=== PATIENT | female | born 1990 | race Caucasian/White ===

== ENCOUNTER 2024-04-21 21:45 | Emergency (ER) | payer OTHER ==
[~2024-04-21] VITALS: Ht 142.2 cm; Wt 51.3 kg
[2024-04-21 22:12] LABS: BASOPHILS 0.1 % (0-2); HEMATOCRIT 43.9 % (35.0-50.0); HEMOGLOBIN 15.2 g/dL (12.0-18.0); MCH 29.3 (27-36); MCHC 34.6 g/dl (30-36); MCV 84.7 fl (81-99); MONOCYTES 2.2 % (0-12); NEUTROPHILS 91.7 % (39-80); PLATELET COUNT 246 K/uL (140-440); RBC 5.18 M/ul (4.3-5.7); RDW 14.7 (10.5-15.0)
[2024-04-21] MEDS ORDERED: ondansetron HCL 4 MG/2 ML VIAL IV ONE (22:15)
[2024-04-21] MEDS ORDERED: SODIUM CHLORIDE 0.9% 1,000 ML IV ONE (22:15)
[2024-04-21 22:28] LABS: ALBUMIN 4.5 g/dL (3.4-5.0); ALBUMIN/GLOBULIN RATIO 1.22 (1.1-2.4); ANION GAP 17.2 (7-21); BILIRUBIN, TOTAL 0.9 mg/dL (0.2-1.0); BUN/CREATININE RATIO 27.5 (6.0-28.6); CALCIUM 9.2 mg/dL (8.5-10.1); CREATININE, SERUM 0.8 mg/dL (0.55-1.02); MAGNESIUM 1.8 mg/dL (1.8-2.4); POTASSIUM 4.2 mmol/L (3.5-5.1); PROTEIN, TOTAL 8.2 g/dL (6.4-8.2)
[2024-04-21 22:46] LABS: BILIRUBIN, URINE POSITIVE (negative); BLOOD/HGB, URINE NEGATIVE (Negative); KETONE, URINE SMALL (Negative); LEUK ESTERASE, URINE NEGATIVE (negative); NITRITE, URINE NEGATIVE (negative); PH, URINE 5.5 (5-7)
[2024-04-21] MEDS ORDERED: DIPHENOXYLATE/ATROPINE 1 EA TAB PO ONE (23:00)
[2024-04-21] MEDS ORDERED: ONDANSETRON 4 MG HOME.PACK SL ONE (23:45)
[2024-04-21 23:51] VITALS: BP 118/73
== END 2024-04-21 23:50 | disposition home or self-care (01) ==
LOC: ED 21:45
PROVIDERS: Emergency Medicine
DX: K52.9 Noninfective gastroenteritis and colitis, unspecified (principal); K21.9 Gastro-esophageal reflux disease without esophagitis; Z88.1 Allergy status to other antibiotic agents
CPT/HCPCS: 36415; 80053; 81003; 83735; 84703; 85025; 96374; 99284-25; A9270; J2405; J7030

== ENCOUNTER 2024-08-23 14:36 | Emergency (ER) | payer OTHER ==
[~2024-08-23] VITALS: Ht 142.2 cm; Wt 48.0 kg
--- OUTSIDE RECORDS SUMMARY | 2024-08-23 14:44 | XMS ---
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 Dentist: [employer] [facility] PHONE: [phone] -Johann- Dentist: [employer] [facility] PHONE: [phone] Jude has no Care Guidelines for this patient. E.D. VISIT COUNT (12 MO.) [address] [facility] TOTAL 3 NOTE: Visits indicate total known visits. ED/UCC VISIT TRACKING (12 MO.) 08/23/2024 14:38 [facility] TYPE: Emergency COMPLAINT: - SKIN ISSUES 08/22/2024 21:46 [facility] TYPE: Emergency COMPLAINT: - SCABIES 04/21/2024 21:[address] [facility] [place] TYPE: Emergency COMPLAINT: - VOMITING DIAGNOSES: - Allergy status to other antibiotic agents - Gastro-esophageal reflux disease without esophagitis - Noninfective gastroenteritis and colitis, unspecified - Vomiting, unspecified INPATIENT VISIT TRACKING (12 MO.) No inpatient visits to display in this time frame [email or web address]
[2024-08-23 15:47] VITALS: BP 152/96
== END 2024-08-23 15:48 | disposition home or self-care (01) ==
LOC: ED 14:36
DX: M79.89 Other specified soft tissue disorders (principal); Z79.2 Long term (current) use of antibiotics; K21.9 Gastro-esophageal reflux disease without esophagitis
CPT/HCPCS: 99283